=== PATIENT | female | born 1960 | race Caucasian/White ===

== ENCOUNTER 2021-07-05 07:16 | Day surgery (SDC) | payer OTHER ==
[~2021-07-05 07:16] MED LIST: GEMFIBROZIL600 MG PO; LISINOPRIL5 MG PO; METFORMIN HCL500 M3 PO; OMEGA-31000 MG PO; TOPROL XL25 M1 PO
[2021-07-05] MEDS ORDERED: CILOXAN5 ML OTIC (14:54)
[2021-07-05] MEDS ORDERED: CEPHALEXIN500 M1 PO (14:54)
== END 2021-07-05 17:49 | disposition home or self-care (01) ==
LOC: CIR.AMB 07:16
PROVIDERS: ATTEND Otolaryngology Otology & Neurotology
DX: H72.01 Central perforation of tympanic membrane, right ear (principal); H90.A31 Mixed conductive and sensorineural hearing loss, unilateral, right ear with restricted hearing on the contralateral side